=== PATIENT | female | born 1950 | race Hispanic/Latino ===

== ENCOUNTER 2024-12-16 01:39 | Emergency (ER) | payer OTHER ==
[2024-12-16 03:27] LABS: Absolute Eosinophils 0.1 K/uL (0-0.5); Absolute Lymphocytes (CBC) 2.3 K/uL (0.7-4.9); Absolute Monocytes 0.4 K/uL (0.1-1.3); Basophils % 0.4 % (0-1.3); Hematocrit 30.6 % (36.0-45.0); Hemoglobin 10.6 g/dL (12.0-15.0); Lymphocytes % 39.1 % (15.3-44.8); MCH 34.3 pg (27.0-35.0); MCHC 34.6 g/dL (32.0-36.0); MCV 99.3 fL (80-100); MPV 7.7 fL (7.6-11.3); Monocytes % 6.2 % (3.3-12.3); Neutrophils % 52.3 % (41.7-73.7); Nucleated Red Blood Cells % 0.1 % (0-0); Platelets 224 thou/uL (152-406); RBC Red Blood Cell Count 3.08 M/uL (3.86-4.86); Red Cell Distribution Width 13.8 % (12.1-15.2)
[2024-12-16 03:30] LABS: Specific Gravity 1.005 (1.005-1.030); Sqamous Epithelial <5 /HPF (None Seen); Urine Bacteria <20 /HPF (<20); Urine Bilirubin NEGATIVE (Negative); Urine Blood Negative (Negative); Urine Clarity Turbid (Clear); Urine Color Colorless (Yellow); Urine Culture Reflex Order NOT NEEDED; Urine Glucose NEGATIVE (Negative); Urine Ketones NEGATIVE (Negative); Urine Microscopic Reflex YN ORDER UMIC; Urine Nitrite NEGATIVE (Negative); Urine Protein NEGATIVE (Negative); Urine RBC None Seen /HPF (None Seen); Urine Urobilinogen Normal (Normal); Urine WBC <5 /HPF (<5)
[2024-12-16] MEDS ORDERED: NA CHLORIDE 0.9% 1,000 ML ONE (03:37)
[2024-12-16 03:44] LABS: Anion Gap 6.5 mEq/L (5.0-15.0); Potassium 4.5 mEq/L (3.5-5.1)
[2024-12-16 03:56] LABS: Troponin High Sensitivity 77.9 pg/mL (<58.9)
[2024-12-16] MEDS ORDERED: ASPIRIN 81 MG CHEWABLE TABLET ONE (04:16)
--- NOTE | 2024-12-16 04:31 | EDPHYS ---
Physician Documentation [facility] Name: Mer Villalobos Age: 74 yrs Sex: Female : 1950 Arrival Date: 12/16/2024 Time: 01:39 Bed 7 Private MD: ED Physician Arthur Diggs HPI: 12/16 03:55 This 74 yrs old Female presents to ER via Ambulatory with complaints of Leg rn Pain, Back Pain, Doesn't Feel Right. 04:11 Patient reports "just does not feel right". Patient reports a sense of impending doom rn and feeling like if she goes to sleep will not wake up. Denies any overt chest pain but tapped at her chest when states she does not feel right. No fever or chills. No recent illness. No shortness of breath. No vomiting or diarrhea. No changes in medication. No abdominal pain. No known history of cardiac problems or stents or valvular problems.. Onset: The symptoms/episode began/occurred last night. Severity of symptoms: At their worst the symptoms were moderate in the emergency department the symptoms have improved. The patient has not experienced similar symptoms in the past. Historical: - Allergies: 02:20 Bactrim; vc1 02:20 Demerol; vc1 02:20 meperidine HCl; vc1 02:20 sulfamethoxazole-trimethoprim; vc1 02:20 tramadol; vc1 - Home Meds: 02:20 aspirin 81 mg Oral chew [Active]; Lipitor 40 mg oral tablet [Active]; Metformin Oral vc1 [Active]; memantine 10 mg oral tablet 2 times per day [Active]; atorvastatin 40 mg oral tablet [Active]; donepezil 10 mg oral tablet twice a day [Active]; Plavix 75 mg Oral tab daily [Active]; metoprolol succinate 100 mg oral Tablet, Extended Release 24 hr [Active]; duloxetine 30 mg oral Capsule, Delayed Release Sprinkle [Active]; alendronate 70 mg oral tablet [Active]; - PMHx: 02:20 Diabetes - NIDDM; Hypertension; Kidney stones; neuropathy (Kidney stones); Osteoporosis;vc1 - PSHx: 02:20 Cholecystectomy; Total abdominal hysterectomy; vc1 - Immunization history:: Client reports receiving the 2nd dose of the Covid vaccine, Flu vaccine is up to date. - Infectious Disease History:: Denies. - Social history:: Smoking status: Patient denies any tobacco usage or history of. - Family history:: not pertinent. - Hospitalizations: : No recent hospitalization is reported. ROS: 04:11 Constitutional: Negative for fever, chills, and weight loss, Cardiovascular: Negative rn for chest pain, palpitations, and edema, Respiratory: Negative for shortness of breath, cough, wheezing, and pleuritic chest pain, Abdomen/GI: Negative for abdominal pain, nausea, vomiting, diarrhea, and constipation, MS/Extremity: Negative for injury and deformity, Skin: Negative for injury, rash, and discoloration, Neuro: Negative for headache, weakness, numbness, tingling, and seizure, Exam: 03:55 ECG was reviewed by the Attending Physician. rn 04:11 Constitutional: This is a well developed, well nourished patient who is awake, alert, rn and in no acute distress. Cardiovascular: Bradycardic, regular. No pulse deficits. Respiratory: No increased work of breathing, no retractions or nasal flaring. Abdomen/GI: Soft, non-tender MS/ Extremity: Pulses equal, no cyanosis Neuro: Awake and alert, GCS 15 Vital Signs: 02:18 BP 154 / 59; Pulse 60; Resp 16; Temp 97.9; Pulse Ox 100% ; Weight 58.97 kg; Height 5 vc1 ft. 3 in. ; Pain 0/10; 03:26 BP 155 / 55; Pulse 56; Resp 17; Pulse Ox 100% ; Pain 5/10; mb12 04:30 BP 176 / 72; Pulse 67; Resp 17; Pulse Ox 100% ; mb12 05:30 BP 116 / 96; Pulse 65; Resp 17; Pulse Ox 100% ; mb12 06:30 BP 157 / 62; Pulse 57; Resp 16; Pulse Ox 100% ; mb12 07:00 BP 146 / 59; Pulse 64; Resp 18; Pulse Ox 100% on R/A; db 07:30 BP 148 / 69; Pulse 67; Resp 18; Pulse Ox 99% on R/A; db 08:00 BP 154 / 72; Pulse 67; Resp 16; Pulse Ox 100% on R/A; db 08:45 BP 146 / 66; Pulse 64; Resp 16; Pulse Ox 97% on R/A; db 09:30 BP 136 / 68; Pulse 69; Resp 22; Pulse Ox 100% on R/A; db 02:18 Body Mass Index 23.03 (58.97 kg, 160.02 cm) vc1 02:18 Pain Scale: Adult vc1 03:26 Pain Scale: Adult mb12 MDM: 01:46 Medical Screening Exam initiated rn 04:27 Differential Diagnosis Anxiety, dehydration, cardiac event. Data reviewed: vital signs, rn nurses notes, lab test result(s), radiologic studies, plain films, and as a result, I will admit patient. Consideration of Admission/Observation Patient was admitted/placed on observation. Escalation of care including admission/observation considered. Counseling: I had a detailed discussion with the patient and/or guardian regarding the historical points, exam findings, and any diagnostic results supporting the discharge/admit diagnosis, lab results, radiology results, the need for further work-up and treatment in the hospital, the need to transfer to another facility, for higher level of care, [facility] does not immediately have the required specialist. ED course: Troponin mildly elevated. No ischemia on ECG. Unable to admit here due to Bookkeeping Teacher being down. Her doctor is at [facility], attempted transfer to [facility] and they declined due to capacity. Attempting to transfer to [facility] now.. 05:13 ED course: Spoke with cardiology at [facility], accepts for consultation, will call back rn with hospitalist. . 12/16 02:26 Order name: CBC with Diff; Complete Time: 03:35 rn 12/16 02:26 Order name: Basic Metabolic Panel; Complete Time: 03:58 rn 12/16 02:26 Order name: Troponin High Sensitivity; Complete Time: 03:58 rn 12/16 02:26 Order name: BNP; Complete Time: 03:58 rn 12/16 02:26 Order name: Urinalysis w/ reflexes; Complete Time: 03:35 rn 12/16 04:44 Order name: Ptt, Activated; Complete Time: 05:14 mb12 12/16 07:46 Order name: Troponin High Sensitivity db 12/16 07:46 Order name: Ptt, Activated db 12/16 08:49 Order name: Ptt, Activated db 12/16 02:26 Order name: XRAY Chest (1 view) rn 12/16 02:26 Order name: IV Start; Complete Time: 03:10 rn 12/16 02:26 Order name: EKG - Nurse/Tech; Complete Time: 03: rn 12/16 02:26 Order name: Cardiac monitoring; Complete Time: rn 12/16 02:26 Order name: O2 Sat Monitoring; Complete Time: : rn EC:55 Rate is 52 beats/min. Rhythm is regular. QRS [place] is Normal. HI interval is normal. QRS rn interval is normal. QT interval is normal. No Q waves. T waves are Normal. No ST changes noted. Clinical impression: Sinus bradycardia. Interpreted by me. Reviewed by me. Administered Medications: 03:37 Drug: NS 0.9% IV 1000 ml IV at 1000 ml once; to be given as a bolus over 60 minutes dd2 Route: IV; Rate: 1000 ml; Site: right antecubital; 07:15 Follow up: Response: No adverse reaction; IV Status: Completed infusion; IV Intake: db 1000ml 04:19 Drug: Aspirin PO Chewable Tablet 324 mg PO once; 81 mg tablets x 4 Route: PO; mb12 07:15 Follow up: Response: No adverse reaction db 04:42 Drug: Heparin ([place]-Bolus No thrombolytic) - HEParin IVP 60 units/kg IVP once; Max 5000 mb12 units {Co-Signature: vc1 (Jennifer Curtis RN).} Route: IVP; Site: right antecubital; 09:00 Follow up: Response: No adverse reaction db 04:43 Drug: Heparin ([place] Drip) 12 units/kg/[place] - ([place] [address] units, D5W IV 500 ml) IV at mb12 calculated rate Per protocol; Max initial rate 1000 units/hr {Co-Signature: vc1 (Jennifer Curtis RN).} Route: IV; Rate: 700 units/hr; Site: right antecubital; 09:00 Follow up: Response: No adverse reaction; IV Status: Infusion continued upon transfer db Disposition Summary: 12/16/24 04:30 Transfer Ordered Notes: Transfer Location: [facility] rn Reason: Higher level of care rn Condition: Stable rn Problem: new rn Symptoms: have improved rn Accepting Physician: (12/16/24 10:27) ss Diagnosis - Subsequent non-ST elevation (NSTEMI) myocardial infarction rn Forms: - Medication Reconciliation Form rn - SBAR form rn Signatures: Dispatcher [employer] EDMS Arthur Diggs MD MD rn Blanchard, Shelby, RN RN ss Jennifer Curtis RN RN vc1 JUANY CASTILLO RN RN dd2 Nasrin Moreland 12 Suyapa Davis RN db Jennifer Curtis RN vc1 Corrections: (The following items were deleted from the chart) 02: 02:26 CBC+H.LAB.BRZ ordered. EDMS EDMS 02: 02:26 BASIC METABOLIC PANEL+C.LAB.BRZ ordered. EDMS EDMS 02: 02:26 Troponin High Sensitivity+C.LAB.BRZ ordered. EDMS EDMS 02: 02:26 PROBNP+C.LAB.BRZ ordered. EDMS EDMS 02: 02:26 Urinalysis+U.LAB.BRZ ordered. EDMS EDMS 02:27 02:27 Chest Single View+RAD.RAD.BRZ ordered. EDMS EDMS 08:49 08:49 PTT, ACTIVATED+COAG.LAB.BRZ ordered. EDMS EDMS 10:27 04:30 Dr. salinas ss
--- NOTE | 2024-12-16 04:31 | ER ---
Nurse's Notes [facility] Name: Mer Villalobos Age: 74 yrs Sex: Female : 1950 Arrival Date: 12/16/2024 Time: 01:39 Bed 7 Private MD: Diagnosis: Subsequent non-ST elevation (NSTEMI) myocardial infarction Presentation: 12/16 02:18 Chief complaint: Patient states: feel week, neuropathy is worse today I can't sleep. vc1 Coronavirus screen: Client denies travel out of the [place] in the last 14 days. At this time, the client does not indicate any symptoms associated with coronavirus-19. Ebola Screen: Patient negative for fever greater than or equal to 101.5 degrees Fahrenheit, and additional compatible Ebola Virus Disease symptoms Patient denies exposure to infectious person. Patient denies travel to an Ebola-affected area in the 21 days before illness onset. No symptoms or risks identified at this time. Initial Sepsis Screen: Does the patient meet any 2 criteria? No. Patient's initial sepsis screen is negative. Does the patient have a suspected source of infection? No. Patient's initial sepsis screen is negative. Risk Assessment: Do you want to hurt yourself or someone else? Patient reports no desire to harm self or others. Onset of symptoms was December 15, 2024. 02:18 Method Of Arrival: Ambulatory vc1 02:18 Acuity: [id number] 4 vc1 Triage Assessment: 02:28 General: Appears in no apparent distress. uncomfortable, Behavior is calm, cooperative, vc1 appropriate for age. Pain: Complains of pain in right leg and left leg. EENT: No deficits noted. No signs and/or symptoms were reported regarding the EENT system. Neuro: Level of Consciousness is awake, alert, obeys commands, Oriented to person, place, time, situation, Appropriate for age. Cardiovascular: Capillary refill < 3 seconds. Respiratory: Airway is patent Respiratory effort is even, unlabored, Respiratory pattern is regular, symmetrical. GI: No deficits noted. No signs and/or symptoms were reported involving the gastrointestinal system. : No deficits noted. No signs and/or symptoms were reported regarding the genitourinary system. Derm: Skin is intact, is healthy with good turgor, Skin is dry, Skin is normal, Skin temperature is warm. Musculoskeletal: Circulation, motion, and sensation intact. Range of motion: intact in all extremities. Historical: - Allergies: 02:20 Bactrim; vc1 02:20 Demerol; vc1 02:20 meperidine HCl; vc1 02:20 sulfamethoxazole-trimethoprim; vc1 02:20 tramadol; vc1 - Home Meds: 02:20 aspirin 81 mg Oral chew [Active]; Lipitor 40 mg oral tablet [Active]; Metformin Oral vc1 [Active]; memantine 10 mg oral tablet 2 times per day [Active]; atorvastatin 40 mg oral tablet [Active]; donepezil 10 mg oral tablet twice a day [Active]; Plavix 75 mg Oral tab daily [Active]; metoprolol succinate 100 mg oral Tablet, Extended Release 24 hr [Active]; duloxetine 30 mg oral Capsule, Delayed Release Sprinkle [Active]; alendronate 70 mg oral tablet [Active]; - PMHx: 02:20 Diabetes - NIDDM; Hypertension; Kidney stones; neuropathy (Kidney stones); Osteoporosis;vc1 - PSHx: 02:20 Cholecystectomy; Total abdominal hysterectomy; vc1 - Immunization history:: Client reports receiving the 2nd dose of the Covid vaccine, Flu vaccine is up to date. - Infectious Disease History:: Denies. - Social history:: Smoking status: Patient denies any tobacco usage or history of. - Family history:: not pertinent. - Hospitalizations: : No recent hospitalization is reported. Screenin:14 [facility] ED Fall Risk Assessment (Adult) History of falling in the last 3 months, vc1 including since admission No falls in past 3 months (0 pts) Confusion or Disorientation No (0 pts) Intoxicated or Sedated No (0 pts) Impaired Gait No (0 pts) Mobility Assist Device Used No (0 pt) Altered Elimination No (0 pt) Score/Fall Risk Level 0 - 2 = Low Risk Oriented to surroundings, Maintained a safe environment, Educated pt \T\ family on fall prevention, incl call for assistance when getting out of bed, Hourly rounding (assess needs \T\ fall precautionary measures) done. Abuse screen: Denies threats or abuse. Nutritional screening: No deficits noted. Tuberculosis screening: No symptoms or risk factors identified. Assessment: 03:26 General: Appears uncomfortable, Behavior is calm, cooperative, appropriate for age, mb12 restless. Pain: Complains of pain in right leg and left leg Pain currently is 5 out of 10 on a pain scale. Quality of pain is described as tingling, numb. Neuro: No deficits noted. Level of Consciousness is awake, alert, obeys commands, Oriented to person, place, time, situation, Appropriate for age Screedman/Laborer are equal bilaterally Moves all extremities. Gait is steady, Speech is normal, Facial symmetry appears normal, Pupils are PERRLA. Cardiovascular: No deficits noted. Rhythm is sinus bradycardia. Respiratory: No deficits noted. 08:48 Reassessment: Patient appears in no apparent distress at this time. Patient and/or db family updated on plan of care and expected duration. Pain level reassessed. Patient is alert, oriented x 3, equal unlabored respirations, skin warm/dry/pink. 08:56 Reassessment: REPORT GIVEN TO PUSHPA VILLAFANA AT [facility]. db 09:30 Reassessment: Patient appears in no apparent distress at this time. Patient and/or db family updated on plan of care and expected duration. Pain level reassessed. Patient is alert, oriented x 3, equal unlabored respirations, skin warm/dry/pink. 10:00 Reassessment: NOTIFIED EMS OF PATIENT PTT [id number]. HEPARIN DRIP TO BE PAUSED. db Vital Signs: 02:18 BP 154 / 59; Pulse 60; Resp 16; Temp 97.9; Pulse Ox 100% ; Weight 58.97 kg; Height 5 vc1 ft. 3 in. ; Pain 0/10; 03:26 BP 155 / 55; Pulse 56; Resp 17; Pulse Ox 100% ; Pain 5/10; mb12 04:30 BP 176 / 72; Pulse 67; Resp 17; Pulse Ox 100% ; mb12 05:30 BP 116 / 96; Pulse 65; Resp 17; Pulse Ox 100% ; mb12 06:30 BP 157 / 62; Pulse 57; Resp 16; Pulse Ox 100% ; mb12 07:00 BP 146 / 59; Pulse 64; Resp 18; Pulse Ox 100% on R/A; db 07:30 BP 148 / 69; Pulse 67; Resp 18; Pulse Ox 99% on R/A; db 08:00 BP 154 / 72; Pulse 67; Resp 16; Pulse Ox 100% on R/A; db 08:45 BP 146 / 66; Pulse 64; Resp 16; Pulse Ox 97% on R/A; db 09:30 BP 136 / 68; Pulse 69; Resp 22; Pulse Ox 100% on R/A; db 02:18 Body Mass Index 23.03 (58.97 kg, 160.02 cm) vc1 02:18 Pain Scale: Adult vc1 03:26 Pain Scale: Adult mb12 ED Course: 01:41 Patient arrived in ED. jj6 01:45 Arthur Diggs MD is Attending Physician. rn 02:20 Triage completed. vc1 02:28 Arm band placed on right wrist. vc1 03:06 Nasrin Moreland is Primary Nurse. mb12 03:20 XRAY Chest (1 view) In Process Unspecified. EDMS 03:25 CBC with Diff Sent. mb12 03:25 Basic Metabolic Panel Sent. mb12 03:25 Troponin High Sensitivity Sent. mb12 03:25 Urinalysis w/ reflexes Sent. mb12 03:25 BNP Sent. mb12 03:26 Patient has correct armband on for positive identification. Placed in gown. Bed in low mb12 position. Call light in reach. Side rails up X 1. Adult w/ patient. 03:26 Inserted saline lock: 20 gauge in right antecubital area, using aseptic technique. mb12 04:11 Initiated transfer with Susie at [facility]. rv1 04:24 [facility] declined due to capacity. rv1 04:25 Initiated transfer with Odilia at [facility]. rv1 05:03 Doc to Doc with fuel cell battery technician. rv1 05:20 Doc to Doc with Hospitalist. Cardio and Hospitalist accepted pt, Mary at [facility] rv1 said a bed was being cleaned and they would call back with a bed assignment once completed. 08:50 pt was accepted in transfer to [facility] by dr Ascencio, but refuses to go to [facility], pt has a dr at [facility], initiated transfer to [facility],pt was accepted in transfer to [facility] by dr Gutierrez admin approval given by Marjorie Laureano. 08:56 No provider procedures requiring assistance completed. Patient transferred, IV remains db in place. 09:09 Repeat lab(s) drawn. by tn, sent to lab. Inserted saline lock: 22 gauge in left db forearm, using aseptic technique. Blood collected. Flushed with 10 mL NS. 09:58 Provided Education on: DISCHARGE AND FOLLOWUP. Client placed on continuous cardiac and db pulse oximetry monitoring. NIBP monitoring applied. quality assurance monitor chassis on. Pulse ox on. NIBP on. Administered Medications: 03:37 Drug: NS 0.9% IV 1000 ml IV at 1000 ml once; to be given as a bolus over 60 minutes dd2 Route: IV; Rate: 1000 ml; Site: right antecubital; 07:15 Follow up: Response: No adverse reaction; IV Status: Completed infusion; IV Intake: db 1000ml 04:19 Drug: Aspirin PO Chewable Tablet 324 mg PO once; 81 mg tablets x 4 Route: PO; mb12 07:15 Follow up: Response: No adverse reaction db 04:42 Drug: Heparin ([place]-Bolus No thrombolytic) - HEParin IVP 60 units/kg IVP once; Max 5000 mb12 units {Co-Signature: 1 (Jennifer Curtis RN).} Route: IVP; Site: right antecubital; 09:00 Follow up: Response: No adverse reaction db 04:43 Drug: Heparin ([place] Drip) 12 units/kg/[place] - ([place] [address] units, D5W IV 500 ml) IV at mb12 calculated rate Per protocol; Max initial rate 1000 units/hr {Co-Signature: vc1 (Jennifer Curtis RN).} Route: IV; Rate: 700 units/hr; Site: right antecubital; 09:00 Follow up: Response: No adverse reaction; IV Status: Infusion continued upon transfer db Medication: 09:58 VIS not applicable for this client. db Intake: 07:15 IV: 1000ml; Total: 1000ml. db Outcome: 04:30 ER care complete, transfer ordered by MD. salinas 09:58 Transferred by ground EMS to [facility], Transfer form completed. X-rays db sent w/ patient. 09:58 Condition: stable 09:58 Instructed on the need for transfer, 10:27 Patient left the ED. ss Signatures: Dispatcher [employer] EDMS Janet Allan Roman, MD MD rn Blanchard, Shelby, RN RN Megan Celaya jj6 Jennifer Curtis RN RN Suyapa Castro RN RN Jada Fajardo rv1 JUANY CASTILLO RN RN dd2 Nasrin Moreland mb12 Jennifer Curtis RN vc1 Corrections: (The following items were deleted from the chart) 04:43 04:42 Heparin (ID-Bolus No thrombolytic) - HEParin IVP 3538.2 units IVP in right mb12 antecubital mb12 09:01 08:56 Reassessment: REPORT GIVEN TO PUSHPA VILLAFANA AT [facility]
[2024-12-16] MEDS ORDERED: HEPARIN 5000 UNIT/ML 1 ML VIAL ONE (04:40)
[2024-12-16] MEDS ORDERED: HEPARIN/D5W 25,000 UNIT/500 ML BAG IV ONE (04:40)
--- NOTE | 2024-12-16 05:36 | RAD REPORT ---
EXAM: XR Chest, 1 View CLINICAL HISTORY: doesn't feel right TECHNIQUE: Frontal view of the chest. COMPARISON: XR Chest dated 04/12/2024 FINDINGS: Lungs: Coarsened interstitial markings. No focal consolidation. Pleural space: Unremarkable. No pneumothorax. Heart: See below. Mediastinum: Unremarkable. Normal mediastinal contour. Bones/joints: Remote proximal right humeral fracture deformity. Multilevel spondylosis. No acute fracture. Vasculature: Thoracic aortic atherosclerosis. Aortic valvular stent again demonstrated. IMPRESSION: No acute disease. Electronically signed by: Chun Burks MD 12/16/2024 03:58 AM CDT Due to temporary technical issues with the PACS/Kickboard reporting system, reports are being jazmin d by the in-house radiologist without review as a courtesy to ensure prompt reporting the interpreting radiologist is fully responsible for the content of the report. Transcribed Date/Time: 12/16/2024 5:36 AM
[2024-12-16 10:32] VITALS: TEMP 97.9
[2024-12-16 10:48] VITALS: BP 136/68; O2SAT 100
--- NOTE | 2024-12-16 12:08 | EKG ---
Test Date: 2024-12-16 Test Time: 03:23:39 [employer]: MB MEASUREMENT RESULTS: Intervals: Rate: 52 KS: 160 QRSD: 80 QT: 462 QTc: 429 [place]: P: 45 KS: 160 QRS: 3 T: 51 INTERPRETIVE STATEMENTS: Sinus bradycardia Possible Left atrial enlargement Septal infarct, age undetermined Abnormal ECG Compared to ECG 11/12/2013 11:56:40 Myocardial infarct finding now present Sinus rhythm no longer present Left ventricular hypertrophy no longer present Electronically Signed On 12-16-24 12:07:58 CDT by Dawood Monzon
== END 2024-12-16 10:27 | disposition short-term general hospital (02) ==
LOC: ER 01:39
DX: I22.2 Subsequent non-ST elevation (NSTEMI) myocardial infarction (principal); I21.9 Acute myocardial infarction, unspecified; I10 Essential (primary) hypertension; E11.9 Type 2 diabetes mellitus without complications; Z79.01 Long term (current) use of anticoagulants; Z79.82 Long term (current) use of aspirin
CPT/HCPCS: 96365; 96361; 93005; 85025; 81001; 80048; 36415; 85730 ×3; 84484 ×2; 83880; 71045; 99285; 96366; J1644; J7030